=== PATIENT | male | born 1980 | race Caucasian/White ===

== ENCOUNTER 2020-12-16 16:24 | Inpatient (IN) ==
[2020-12-16 16:54] LABS: Bilirubin,Urine Negative (Negative); Blood,Urine Negative (Negative); Clarity,Urine Clear (Clear); Color,Urine Light-Yellow (Yellow); Glucose,Urine (UA) Normal (Normal); Ketones,Urine Negative (Negative); Leukocyte Esterase,Urine Negative (Negative); Nitrite,Urine Negative (Negative); PH,Urine 6.5 pH Units (5.0-8.0); Protein,Urine Negative (Neg-Trace); Specific Gravity,Urine 1.024 (1.010-1.025); Urobilinogen,Urine Normal (Normal)
[2020-12-16 17:07] LABS: Basophils # 0.1 K/mcL (0.0-0.2); Basophils % 0.7 %; Eosinophils # 0.4 K/mcL (0.0-0.6); Eosinophils % 3.1 %; Hematocrit 46.1 % (37.5-50.1); Hemoglobin 15.9 g/dL (12.9-16.9); Immature Granulocytes % 0.2 % (0-4); Lymphocytes # 3.2 K/mcL (0.6-4.6); Lymphocytes % 26.3 %; Mean Corpuscular HGB Conc 34.5 g/dL (31.6-35.5); Mean Corpuscular Volume 89.9 fL (83.0-100.0); Mean Platelet Volume 9.4 fL (9.4-12.4); Monocytes # 0.5 K/mcL (0.0-1.3); Monocytes % 4.4 %; Platelet Count 246 K/mcL (140-400); Red Blood Count 5.13 M/mcL (4.19-5.50); Red Cell Distribution Width 12.7 % (11.5-14.5); Segmented Neutrophils % 65.3 %; White Blood Count 12.3 K/mcL (4.3-11.1)
[2020-12-16 17:13] LABS: Amphetamine Screen,Urine Negative ng/mL (Cutoff=1000); Barbiturate Screen,Urine Negative ng/mL (Cutoff=200); Benzodiazepines Screen,Urine Negative ng/mL (Cutoff=200); Cannabinoid Screen,Urine Negative ng/mL (Cutoff = 50); Cocaine Screen,Urine Negative ng/mL (Cutoff= 300); Opiate Screen,Urine Positive ng/mL (Cutoff=300); Phencyclidine Screen,Urine Negative ng/mL (Cutoff=25)
[2020-12-16 17:17] LABS: Estimated Average Glucose 100 mg/dl; Hemoglobin A1C 5.1 %
[2020-12-16 17:24] LABS: Acetaminophen < 10 mcg/mL (10-20); BUN/Creatinine Ratio 14 (6-26); Blood Urea Nitrogen 11 mg/dL (6-20); Calcium 9.2 mg/dL (8.6-10.3); Carbon Dioxide 27 mEq/L (23-29); Chloride 105 mEq/L (98-107); Chol/HDL Ratio 4.8 (0-4.9); Cholesterol 150 mg/dL (< 200); Ethanol < 10 mg/dL (Less than 10); Glucose 102 mg/dL (70-105); HDL Cholesterol 31 mg/dL (40-59); LDL Cholesterol,Calculated 97 mg/dL (< 100); Osmolality,Calculated 284 (280-300); Potassium 3.6 mEq/L (3.5-5.1); Salicylate < 2.5 mg/dL (15.0-30.0); Sodium 137 mEq/L (136-145); Triglycerides 110 mg/dL (< 150); eGFR For African Americans > 60 (> 60); eGFR For Non-African Americans > 60 (> 60)
[2020-12-16] MEDS ORDERED: Acetaminophen 325 MG TABLET PO PRN (19:40)
[2020-12-16] MEDS ORDERED: Haloperidol Lactate 5 MG/ML VIAL IM PRN (19:40)
[2020-12-16] MEDS ORDERED: MOM Conc 10 ML UD.LIQ PO PRN (19:40)
[2020-12-16] MEDS ORDERED: *HR* LORazepam 1 MG TABLET PO PRN (19:40)
[2020-12-16] MEDS ORDERED: *HR* LORazepam 2 MG/ML VIAL IM PRN (19:40)
[2020-12-16] MEDS ORDERED: Mag Hydrox/Al Hydrox/Simeth 30 ML UDC PO PRN (19:40)
[2020-12-16] MEDS ORDERED: haloperidoL 5 MG TABLET PO PRN (19:40)
[2020-12-16] MEDS: hydrOXYzine pamoate 25 MG CAPSULE PO PRN (21:22)
[2020-12-16] MEDS: traZODone 50 MG TABLET PO PRN (21:22)
[2020-12-17] MEDS: BuPROPion XL (24 HR) 150 MG TABLET PO SCH (11:09)
[2020-12-17] MEDS: hydrOXYzine pamoate 25 MG CAPSULE PO PRN (20:25)
[2020-12-17] MEDS: traZODone 50 MG TABLET PO PRN (20:25)
[2020-12-18] MEDS: BuPROPion XL (24 HR) 150 MG TABLET PO SCH (09:47)
[2020-12-18 10:11] VITALS: BP 113/73
== END 2020-12-18 15:15 | disposition home or self-care (01) | DRG 754 ==
LOC: EMEROOARM 16:24 → 1ANU 19:36
PROVIDERS: ADMIT Psychiatry & Neurology Psychiatry; ATTEND Psychiatry & Neurology Psychiatry